=== PATIENT | male | born 1935 | race Caucasian/White ===

== ENCOUNTER 2019-03-02 15:10 | Inpatient (IN) | payer MEDICARE, OTHER ==
[~2019-03-02] VITALS: Ht 175.2 cm; Wt 55.4 kg
--- NOTE | ~2019-03-02 | WRIGHTHP ---
[place], [place] PATIENT HISTORY AND PHYSICAL EXAM NAME: CHUNG RCIO UNIT #: [id number] ROOM: 316 DOCTOR: CLIFFORD ATKINS MD BIRTHDATE: [birth year] DOS: 03/03/2019 INITIAL PSYCHIATRIC EVALUATION CHIEF COMPLAINT: "Those boys over, they better stop that." HISTORY OF PRESENT ILLNESS: This is an 84-year-old white male who was initially residing at [facility]. The patient sustained a fall while at the rehab facility causing a subdural hematoma. He was taken to [facility] and later transferred to [place]. While at [place], the patient had a significant alteration in mental status and he was verbally and physically agitated and aggressive and very combative with hands on care. He was exit seeking and was hard to redirect. Because of the significant change in behavior and the fact that he was putting both himself and others at substantial risk of harm, it was felt that a psychiatric evaluation and treatment period was warranted. He was admitted to the U to rule out organic factors, to stabilize on medication, to engage in individual and patel milieu activity and to determine the least restrictive environment to which he could return. PAST MEDICAL HISTORY: Remarkable for adult failure to thrive, Alzheimer's dementia, coronary artery disease, hypertension, GERD, CVA, osteoarthritis, Parkinson's disease and subdural hematoma. SOCIAL HISTORY: The patient does not smoke cigarettes, use illicit drugs, or drink alcohol. ALLERGIES: He lists no known allergies. STRENGTHS: Ambulatory. WEAKNESSES: Cognitive decline, poor coping skills. MENTAL STATUS: Upon admission, the patient on the morning of evaluation was alert and oriented to self. Beyond that, he was very disoriented and disjointed and fragmented in his thinking. His responses were totally nonsensical to me and there was nothing that was a reasonable response. On a positive note, he was not agitated or aggressive towards me. There was no hypomania or elizabeth seen. There were no overt auditory or visual hallucinations present. He does process extremely slow and poorly and short term memory is very problematic. DIAGNOSES: Intermittent explosive disorder, Alzheimer's dementia. PLAN: I have increased his Depakote to 250 mg twice a day and 500 mg at bedtime. A valproic acid level upon admission was low at 20.2, which was expected given his initial dose of the Depakote. I have started him on Exelon patch 4.6 mg a day and have already augmented with Namenda 5 mg a day. We will titrate both of these upward as needed and as tolerated. We will engage in individual and patel milieu activity, returning to the least restrictive environment when psychiatrically stable. [place], [place] PATIENT HISTORY AND PHYSICAL EXAM NAME: CHUNG RICO UNIT #: [id number] ROOM: [facility] DOCTOR: CLIFFORD ATKINS MD BIRTHDATE: [birth year] CLIFFORD ATKINS MD CM:HISPHYS:PATIENT HISTORY AND PHYSICAL EXAMINATION 9 CLIFFORD ATKINS MD 03/03/1950 interface
--- NOTE | ~2019-03-02 | PR ---
[place], [place] PROGRESS NOTE NAME: CHUNG RICO UNIT #: [id number] ROOM: 316 DOCTOR: CLIFFORD ATKINS MD BIRTHDATE: [birth year] DOS: 03/05/2019 CHIEF COMPLAINT: "Those boys over there, they did it." SUMMARY OF THE VISIT: The patient was interviewed as he was sitting in a Beckie chair and being fed with the assistance of a nurse's aide. His responses to me were very disjointed and fragmented, almost nonsensical. He was pleasant, however, and did not offer any agitation or aggression. MENTAL STATUS: He remains alert and oriented to self only. He is grossly confused and disoriented. There is no symptom suggestive of elizabeth or hypomania. There is no psychotic symptoms. Memory is very poor and his ability to process is also suspect. PLAN: I will increase his Exelon patch from 4.6 mg daily to 9.5 mg daily, targeting a 13.3 mg dose. Also, increase the Namenda to 5 mg b.i.d. Given his poor p.o. intake, I will add Marinol 2.5 mg b.i.d., monitor for risks, benefits, continue to engage in individual and patel milieu activity, returning to the least restrictive environment when psychiatrically stable. CLIFFORD ATKINS MD CM:PNTRANS 7 [phone] CLIFFORD ATKINS MD [birth year]/191947 interface
--- NOTE | ~2019-03-02 | PR ---
[place], [place] PROGRESS NOTE NAME: CHUNG RICO UNIT #: [id number] ROOM: 316 DOCTOR: CLIFFORD ATKINS MD BIRTHDATE: [birth year] DOS: 03/08/2019 INTERVAL NOTE CHIEF COMPLAINT: "Good morning." SUMMARY OF THE VISIT: The patient was interviewed as he was resting quietly in the dining area. He awoke with some prompting to say good morning. Beyond that, he did not engage. He was pleasant and cooperative with no agitation. MENTAL STATUS: He remains alert and oriented to self only. His responses did tend to be very short and simple except for the good morning. There was no agitation, no aggression, no hypomania. No elizabeth, no psychotic symptoms noted during my interview. Memory is poor and processing is slow. PLAN: I will maximize out the dose of Namenda, bringing it up to 10 mg b.i.d. in an effort to try to lessen any potential sedation and somnolence, I will stop his Depakote and monitor for behavior. I will also change his stop date for his Ativan p.r.n. until 04/03/2019, so in case he requires it, it is there for him. We will continue to engage in individual and patel milieu activity, returning to the least restrictive environment when psychiatrically stable. CLIFFORD ATKINS MD CM:PNTRANS [phone] [id number] CLIFFORD ATKINS MD 03/08/19 0903 interface
--- NOTE | ~2019-03-02 | PR ---
[place], [place] PROGRESS NOTE NAME: CHUNG RICO UNIT #: [id number] ROOM: 316 DOCTOR: CLIFFORD ATKINS MD BIRTHDATE: [birth year] DOS: CHIEF COMPLAINT: "Ya." SUMMARY OF THE VISIT: The patient was attempted to be interviewed as he was resting in bed. I made multiple attempts to engage him and the most I got was a yes or a "ya." For the most part, he ignored me and stared off into space. Nurses report similar behavior with worsening confusion and poor ability to engage. Family has noticed a rather rapid decline and has voiced concerns that the decline is progressing so dramatically. MENTAL STATUS: He is alert and oriented to self. His responses were short, simple, at times inappropriate. PLAN: Given the rapid decline, I will recheck a CAT scan of his head with and without contrast to see if his brain bleed progressed. We will try to rule out any other organic factors, engage in individual and patel milieu activity, returning to the least restrictive environment when psychiatrically stable. CLIFFORD ATKINS MD CM:PNTRANS [phone] [id number] CLIFFORD ATKINS MD 03/04/192113 interface
[~2019-03-02 15:10] MED LIST: ASCORBIC ACID500 M2 PO; CALCI-CHEW500 MG PO; DEPAKOTE SPRIN125 MG PO; DONEPEZIL HYDRO10 M1 PO; LEADER ASPIRIN325 MG PO; MIRALAX17 GM PO; NATURE'S BLEND F1 MG PO; OMEPRAZOLE MAGN20 MG PO; RANITIDINE HCL150 M1 PO; SENNA8.6 MG PO; THERA-M1 EACH PO; VISTARIL50 MG PO; VITAMIN B121000 MC1 PO
[2019-03-02] MEDS ORDERED: DEPAKOTE SPRIN125 MG PO (15:19)
[2019-03-02] MEDS ORDERED: ZOLOFT100 MG PO (15:20)
[2019-03-02] MEDS ORDERED: ARICEPT10 M1 PO (15:21)
[2019-03-02] MEDS ORDERED: VISTARIL50 MG PO (15:23)
[2019-03-02 18:50] VITALS: BP 170/100
--- NOTE | 2019-03-02 18:50 | NUR ---
CHUNG GUADARRAMA a 84 year old M admitted via stretcher from the ADMITTING as a voluntary admission. Arrived on unit at 1850. ALLERGIES: NKA. Vital signs are: 97.4-82-18 168/92. The client's POA,Swati Guadarrama gave verbal consent for the following forms with stated understanding: Authorization For The Release of Medical Information, Clothing List, Consent to Voluntary Admission and Hospitalization, Consent and Release Forms/Receipt of Rights, Acknowledgement of Advance Directive Information, Behavioral Health Consent Form, and Informed Consent of Medications. Admitted under the services of Dr. MILLY DAVID,[facility]. A search was conducted and hazardous articles were removed. 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 JAMES GLEASON
[2019-03-02 19:35] VITALS: BP 168/92
--- NOTE | 2019-03-02 19:45 | NUR ---
Skin assessment performed and no wounds were seen. Indentations from monitor electrodes visible on skin on patient's back and chest. Reddened but blanchable area noted buttock cleft. No open areas noted. Will notify hospitalist.
--- NOTE | 2019-03-02 19:50 | NUR ---
NOTIFIED DR PORTRE OF CLIENTS ADMISSION. UPDATED ON CLIENTS CONDITION
--- NOTE | 2019-03-02 20:00 | NUR ---
Patient unable to participate with admission questions due to cognition.
--- NOTE | 2019-03-02 21:30 | NUR ---
Dr. Mills came and examined patient for admission consult.
[2019-03-02 21:50] VITALS: BP 164/96
--- NOTE | 2019-03-02 22:20 | NUR ---
Patient attempting to get out of bed and setting off alarm. Placed patient in gerichair with body alarm and placed in hallway with staff. Patient cursing at staff,yelling out,swinging arms,and kicking. Was quiet for 5 minutes after placement in gerichair.
--- NOTE | 2019-03-02 22:25 | NUR ---
Patient started yelling out again. Attempted to redirect patient but unsuccessful. Patient raised his arm and swung at staff member but missed. Patient attempted to head butt and bite another staff member. Was kicking yet another staff member. Also cursing out all staff. Attempting to bite several staff. All non-pharmacological interventions unsuccessful. All staff members present for patient's protection to prevent injury to patient. Adminisered Ativan IM prn for patient's safety and Apresoline IV as per doctor's order or hypertension.
[2019-03-02 22:50] VITALS: BP 138/82
--- NOTE | 2019-03-02 22:54 | NUR ---
NOTIFIED DR PORTER OF BP 138/82 MANUAL
[2019-03-02 23:20] VITALS: BP 132/80
--- NOTE | 2019-03-02 23:23 | NUR ---
Dr. Mills was called and notified of all blood pressure readings so far. Dr. Mills said ok to stop monitoring blood pressure at this time.
--- NOTE | 2019-03-03 00:16 | NUR ---
24 HR chart check completed.
--- NOTE | 2019-03-03 05:23 | NUR ---
Patient slept approx. 1 1/2 hours throughout shift. Q 15 minute safety checks continued and maintained.
[2019-03-03 06:31] LABS: ALBUMIN 3.7 gm/dl (3.1-4.5); ALKALINE PHOSPHATASE 113 U/L (45-117); BUN 31 mg/dl (7-24); CHLORIDE 107 mmol/L (98-107); CHOLESTEROL 246 mg/dL (<200); CREATININE 1.02 mg/dL (0.70-1.30); HDL CHOLESTEROL 64 mg/dl (40-60); LDL CHOLESTEROL 167 mg/dL (9-159); POTASSIUM 3.4 mmol/L (3.5-5.1); SGOT/AST 19 IU/L (3-35); SGPT/ALT 21 U/L (12-78); SODIUM 142 mmol/L (136-145); TOTAL PROTEIN 8.2 gm/dL (6.4-8.2); TRIGLYCERIDES 77 mg/dl (<150); VALPROIC ACID (DEPAKENE) 20.2 ug/ml (50-100); VLDL CHOLESTEROL 15 mg/dL (6-40)
[2019-03-03 07:39] LABS: VITAMIN D, 25-HYDROXY 43.5 ng/mL (30-100)
--- NOTE | 2019-03-03 07:48 | NUR ---
DR. HEREDIA AND DR. SCHOFIELD ON FLOOR TO ASSESS PT, UPDATE PROVIDED.
[2019-03-03 07:54] VITALS: BP 155/81
--- NOTE | 2019-03-03 09:00 | NUR ---
SPEECH PATHOLOGY Nursing screen completed. Reports indicate patient suffered a recent CVA. He has been confused and combative. Recommend consult when behavior improves and patient is able to cooperate for assessment. VENKAT SANTIAGO MSCCC-ACCOUNT CONTACT ASSOCIATE
--- NOTE | 2019-03-03 11:43 | NUR ---
AM GROUP PT WAS PRESENT FOR MORNING GROUP THERAPY AND WAS AGITATED BY THE TRAY TABLE LOCKED ON THE ABIGAIL CHAIR. ONCE TRAY WAS REMOVED AND PT REPOSITIONED WITH HELP OF MENTAL HEALTH WORKER, THE PT CALMED AND BEGAN "TALKING" TO ME I SAT BESIDE HIM. PT WAS REACHING FOR UNSEEN OBJECTS AND WAS TALKING TO UNSEEN OTHERS. PT WOULD LOOK TO ME FOR REASSURANCE AND EXHIBITED NO MORE AGITATION OR AGGRESSION.
--- NOTE | 2019-03-03 14:05 | NUR ---
Patient with activity personnel and agitated. Nurse reports that patient has been irritable. OTR will recheck at a later date. Lolis Odom OTR/l
--- NOTE | 2019-03-03 14:05 | NUR ---
PHYSICAL THERAPY Pt partaking in activities and "agitated." Nursing suggested trying at another time. Will attempt later Jyotsna Brown, PT, DPT
--- NOTE | 2019-03-03 14:36 | NUR ---
P: RESTLESS, POOR SAFETY AWARENESS, AGGRESSIVE BEHAVIOR WITH SHORT AND USP MEMORY LOSS, HALLUCINATION I: 1:1 WITH STAFF, REORIENTING POSSIBLE, DISTRACTION, TOILETING WITH SLOW APPROACH AND VISUAL CUEING, CLIP ALARM INTACT FOR SAFETY SOOTHING MUSIC LOW LIGHT STIMULATIONS R: PT RESPONDED WELL WITH HOC, GRABBING OUT FOR UNSEEN OBJECTS, DIFFICULT REDIRECTION FOR REMAINING SEATED, MEDICATION COMPLIANT TODAY P: CONTINUE TO MONITOR WITH MEDICATIONS, IDENTIFYING TRIGGERS, REORIENTATION , PROMOTE SAFETY, PT HAS RAMBLED NONSENSICAL SPEECH WITH POOR HEARING WHICH MAKES COMMUNICATION DIFFICULT. CONTINUE TO APPROACH DIFFERENT COMMUNICATION TECHNIQUES
--- NOTE | 2019-03-03 15:36 | NUR ---
Left a voicemail message for pt's Swati Guadarrama requesting a return call in order to complete the psychosocial assessment as patient is a poor historian.
--- NOTE | 2019-03-03 15:38 | NUR ---
PM GROUP PT WAS PRESENT FOR AFTERNOON GROUP BUT IS UNABLE TO PARTICIPATE DUE TO COGNITIVE IMPAIRMENT. PT WAS EXPERIENCING VISUAL HALLUCINATIONS THE ENTIRE TIME, REACHING, GRABBING, AND TALKING TO UNSEEN OBJECTS/PERSONS. PT WAS SLIGHTLY AGITATED WITH WHOMEVER HE WAS SEEING BUT DID NOT BECOME AGGRESSIVE.
--- NOTE | 2019-03-03 16:05 | NUR ---
Spoke with Nighat Heel Cutter at [facility]. Pt. did not pay to hold bed and Pt. would need all new referral sent to [facility] if family wants him to return to facility.
--- NOTE | 2019-03-03 18:16 | NUR ---
PT RESTLESS, YELLING OUT SWEARING, REACHING AT UNSEEN OBJECTS "I NEED TO GO DOWN THERE, DON'T DROP IT, IT NEEDS TO GO YOU SON OF A BITCH" PT FAMILY INTO VISIT STATED THAT 2 DAYS AGO HE WAS ABLE TO SIT AND COMMUNICATE ABOUT [employer] EVEN THOUGH HE DIDN'T KNOW WHO THEY WERE, PT DID NOT RECOGNIZE OR DAUGHTER. UNABLE TO FOCUS PT AT THIS TIME. SLIGHT DRAINAGE NOTED TO LEFT EYE. WARM WATER WASH COMPLETED AT THIS TIME.
[2019-03-03 19:43] VITALS: BP 129/78
--- NOTE | 2019-03-03 23:49 | NUR ---
The patient has no complaints and is resting comfortably. LILA PERES
--- NOTE | 2019-03-04 02:09 | NUR ---
PT WITH VISUAL AND PERHAPS AUDITORY OR TACTILE HALLUCINATIONS. PT IS OBSERVED SPEAKING WITH UNSEEN OTHERS AND REACHING FOR UNKNOWN OBJECTS IN THE AIR. PT PRESENTED WITH REALITY, REDIRECTED, PROVIDED 1:1. MEDICATIONS ADMINISTERED PER ORDER. PT UNRECEPTIVE TO REALITY PRESENTATION, REDIRECTION AND REORIENTATION. PT IS VERY CONFUSED WITH APPARENT ST/LT MEMORY GAPS. PT IS MEDICATION COMPLIANCE WITH SMALL AMOUNT OF ENCOURAGEMENT. PT SLEEPING QUIETLY IN BED AT THIS TIME. WILL CONTINUE TO PRESENT REALITY AND REDIRECT/REORIENT APPROPRIATE. WILL ENCOURAGE CONTINUED MEDICATION COMPLIANCE. WILL PROMOTE RESTFUL NIGHT SLEEP. Q15 MIN MONITORING PER POLICY
--- NOTE | 2019-03-04 02:18 | NUR ---
24 HR chart check completed.
--- NOTE | 2019-03-04 06:01 | NUR ---
The patient has no complaints and is resting comfortably. PT SLEPT PAST 2300. LILA PERES
[2019-03-04 07:56] VITALS: BP 100/80
--- NOTE | 2019-03-04 12:14 | NUR ---
SPOKE WITH DR. ATKINS RE: PT CT ORDER, PER DR. ATKINS GIVE 1 MG ATIVAN 15-[address]
--- NOTE | 2019-03-04 12:17 | NUR ---
IM ATIVAN ADMINISTERED PER ORDERS PRIOR TO CT.
--- NOTE | 2019-03-04 12:20 | NUR ---
SPEECH PATHOLOGY Orders for swallowing evaluation received and chart review completed. Clinician arrived on [facility] for assessment and was informed that patient is currently NPO for scheduled testing. Will attempt at another time. Thank you for this referral. VENKAT SANTIAGO MSCCC-ENGROSSER
--- NOTE | 2019-03-04 13:00 | NUR ---
Nursing screen received and Occupational Therapy referral received. Thank you. Lolis Odom OTR/l
--- NOTE | 2019-03-04 13:39 | NUR ---
SPEECH PATHOLOGY Clinical swallowing evaluation completed this date to assess appropriateness of current diet. Medical history includes recent subdural hematoma after suffering a fall while in rehab. Further history includes GERD, PD, Alzheimer's, schizophrenia, dysphagia, CAD, HTN, hearing loss in left ear, anxiety, depression. Patient was seen during lunchtime meal. Patient is ordered a pureed diet and nectar thick liquids. He was fed by clinician and his spouse who was visiting. Patient was extremely confused and unable to follow commands or answer questions apppropriately. He displayed a mild oral dysphagia due to occasional residue in oral cavity as he would frequently talk throughout the meal, and not swallow immediately. No cough, throat clear or wet vocal quality observed. Recommend puree and nectar liquids with use of strategies including upright positioning, small bites/sips, giving patient time to swallow before next presentation and alternating liquid and solid. Short term therapy is recommended to ensure safety of diet through education and adherence to safety precautions. Results and cee. were shared with patient's spouse and nurse and they verbalized understanding. Refer to [facility] for further information. Thank you for this referral. VENKAT SANTIAGO MSCCC-INTRUSION ANALYST
--- NOTE | 2019-03-04 16:18 | NUR ---
P: PT INTRUSIVE/DISRUPTIVE AT TIMES, YELLING OUT. PT MOOD IS LABILE. I: PROVIDE EMOTIONAL SUPPORT AND 1:1, OFFER DIVERSIONAL ACTIVITIES R: PT ALERT TO SELF ONLY, CONFUSION AND SHORT TERM MEMORY DEFICITS NOTED PER PT BASELINE. PT MOOD REMAINS LABILE. 1:1 SLIGHTLY EFFECTIVE AT TIMES. PT UP TO A GERICHAIR D/T INABILITY TO AMBULATE INDEPENDENTLY. PT WILL UTILIZE MERRYWALKER AT TIMES TO AMBULATE THROUGHOUT UNIT. PT INCONTINENT OF BOWEL AND BLADDER, CARE PROVIDED NEEDED. PT MED COMPLIANT WITHOUT DIFFICULTY, UNABLE TO PROVIDE MED EDUCATION D/T COGNITION. P: MONITOR PT BEHAVIORS ON Q15 MIN SAFETY CHECKS, ENCOURAGE MED COMPLIANCE, PROVIDE EMOTIONAL SUPPORT AND 1:1, OFFER DIVERSIONAL ACTIVITIES.
[2019-03-04 19:36] VITALS: BP 104/72
--- NOTE | 2019-03-04 19:49 | NUR ---
24 HR chart check completed.
--- NOTE | 2019-03-04 21:29 | NUR ---
PT HAS BEEN SLEEPING IN A ABIGAIL CHAIR WITH TRAY OFF. KEEPS EYES CLOSED BUT RESPONDS TO PERSON ONLY. HAS REFUSED OFFERS OF FLUIDS, FOOD & STATED, "GET THE HELL AWAY FROM ME". REFUSED MEDS CRUSHED IN APPLESAUCE DESPITE 4 ATTEMPTS SPITTING THEM OUT & SWUNG ARM IN THE AIR. WILL CONTINUE TO MONITOR.
--- NOTE | 2019-03-05 03:18 | NUR ---
PT HAS REMAINED AWAKE LYING QUIETLY IN BED. HAS BEEN NOTED TO CARRY ON CONVERSATIONS WITH UNSEEN OTHERS. MILDLY IRRITABLE WITH HANDS ON CARE.
--- NOTE | 2019-03-05 06:07 | NUR ---
PT NOTED TO BE SLEEPING AT 0400
[2019-03-05 07:38] VITALS: BP 133/83
--- NOTE | 2019-03-05 08:00 | NUR ---
Treatment Plan meeting with Dr. Treviño, RN, AT, SW and [facility]. Plan for discharge Next Week. Will speak with Family concerning Discharge Plans.
--- NOTE | 2019-03-05 10:10 | NUR ---
DR. LOMELI ON UNIT TO ASSESS PT, UPDATE PROVIDED.
--- NOTE | 2019-03-05 11:51 | NUR ---
AM GROUP PT WAS PRESENT FOR MORNING GROUP THERAPY RECLINED IN A ABIGAIL CHAIR SLEEPING OFF AND ON. PT WOULD REACH FOR UNSEEN OBJECTS AND SPEAK TO UNSEEN OTHERS AND GO BACK TO SLEEP. PT EXHIBITED NO AGITATION OR AGGRESSION WHILE IN GROUP
--- NOTE | 2019-03-05 12:51 | NUR ---
SPEECH THERAPY Patient seen at lunch for swallowing treatment. He was in gerichair upon clinician arrival. Patient presented with red, watery eyes with confusion observed throughout treatment session. Variety of pureed food items and nectar-thick liquid presented to patient. He required assistance to feed, with verbal cuing to attend and initiate swallow at times. Mild oral residue was observed, which cleared following sips of nectar-like liquid, given to patient with clinicain-controlled tsp sips. No overt s/s of penetration was observed throughout all trials and each consistency. Feeding was discontinued as patient appeared to become more fatigued with lower levels of alertness. This was discussed with nursing staff who reported his level of altertness is reduced from previous day. Recommended continue treatment plan to ensure safety and tolerance of recommended diet. No overt s/s of penetration or aspiration observed today. Continue with current/recommended diet. Patient requires assistance for feeding and monitoring during meals. Yadi Nava MA CCC-MACHINIST CLASS B
--- NOTE | 2019-03-05 15:04 | NUR ---
P: PT RESTLESS AND IRRITABLE AT TIMES. YELLS OUT INTERMITTENTLY. PT REISISTIVE WITH AM MEDS. PT OBSERVED TO BE TALKING TO UNSEEN OTHERS AND PICKING AND MOVING THINGS AROUND IN THE AIR. I: PROVIDE EMOTIONAL SUPPORT AND 1:1 FOR PT TO VOICE FEELINGS, OFFER DIVERSIONAL ACTIVITIES, PROVIDE REDIRECTION, ENCOURAGE MED COMPLIANCE, RE-ORIENT AND PRESENT REALITY R: PT ALERT TO PERSON ONLY, CONFUSION AND SHORT TERM MEMORY DEFICITS NOTED. PT MED COMPLIANT WITH MINIMAL DIFFICULTY. PT UP TO A GERICHAIR D/T INABILITY TO AMBULATE INDEPENDENTLY. PT INCONTINENT OF BOWEL AND BLADDER. REDIRECTION INEFFECTIVE D/T COGNITION PT CONTINUES TO RESPOND TO AUDITORY AND VISUAL HALLUCINATIONS. P: MONITOR PT BEHAVIORS ON Q15 MIN SAFETY CHECKS, ENCOURAGE MED COMPLIANCE, CONTINUE TO REDIRECT AND PRESENT REALITY, PROVIDE EMOTIONAL SUPPORT AND 1:1 FOR PT TO VOICE FEELINGS. P
--- NOTE | 2019-03-05 15:44 | NUR ---
PM GROUP PT WAS PRESENT FOR AFTERNOON GROUP THERAPY CONSTANTLY TRYING TO GET OUT OF HIS CHAIR WITH NO AWARENESS FOR SAFTY. PT WOULD CUSS AND SWING AT ME IF I TRIED TO STOP HIM FROM GETTING UP. PT WAS PICKING AT OBJECTS IN THE AIR, SMASHING "ANTS" ON THE TABLE AND TALKING TO UNSEEN OTHERS WHILE IN GROUP
--- NOTE | 2019-03-05 16:06 | NUR ---
Spoke with Pt. Daughter via telephone. Daughter states that her and her Mother were working to get patient alternate placement before he was sent to [facility] for evaluation.
--- NOTE | 2019-03-05 16:35 | NUR ---
Referral Faxed to [facility].
[2019-03-05 20:03] VITALS: BP 132/84
--- NOTE | 2019-03-05 20:58 | NUR ---
24 HR chart check completed.
--- NOTE | 2019-03-05 22:28 | NUR ---
P-CONFUSED, IRRITABLE, HALLUCINATING, RESTLESS I-PROVIDE EMOTIONAL SUPPORT, REDIRECT, REORIENT, PRESENT REALITY, ADMINISTER MEDICATIONS, MONITOR SLEEP R-PT HAS BEEN AWAKE THIS EVENING. ALERT TO PERSON ONLY. CONFUSION & SHORT TERM MEMORY DEFICITS. SITTING IN A ABIGAIL CHAIR. ATE SNACK & TAKING FLUIDS. 2 ASSISTS FOR AMBULATION & TRANSFERS. IRRITABLE MOOD. RESPONDING TO AUDITORY, VISUAL & TACTILE HALLUCINATIONS. PICKING AT THE AIR & GESTURING. YELLING OUT AT UNSEEN OTHERS IF HE WERE AT WORK. "YOUR NOT DOING THE JOB RIGHT. HURRY UP. I CANT BE OUTSIDE ALL DAY". UNRECEPTIVE TO REORIENTATION, REALITY PRESENTATION OR REDIRECTION. COMPLIANT TAKING MEDICATIONS CRUSHED & MIXED IN PUDDING. HAS BEEN RESTLESS & MORE IRRITABLE WHEN RESPONDING TO SENSORY DISTURBANCE. NOTED TO CURSE AT TIMES. MEDICATED WITH ATIVAN 1 MG PO @ 2154. INCONTINENT OF URINE. P-CONTINUE TO MONITOR, PROVIDE PHYSICAL & EMOTIONAL SUPPORT NEEDED.
--- NOTE | 2019-03-06 06:19 | NUR ---
PT HAS SLEPT FROM [id number]
[2019-03-06 07:33] VITALS: BP 130/66
--- NOTE | 2019-03-06 09:57 | NUR ---
DR. LOMELI ON UNIT TO ASSESS PATIENT.
--- NOTE | 2019-03-06 11:56 | NUR ---
AM GROUP/CARDS/MUSIC PT NOT IN ATTENDANCE DUE TO RESTING IN ROOM AT THIS TIME.
--- NOTE | 2019-03-06 14:53 | NUR ---
P: VISUAL AND AUDITORY HALLUCINATIONS: PATIENT RESPONDING TO INTERNAL STIMULI, TALKING TO UNSEEN OTHERS, WAVING HANDS IN THE AIR. STATING "I'M TRYING TO GET THOSE BUMBLE BEES OFF HER" I: ONE ON ONE, REORIENTED TO PLACE AND SITUATION, ENCOURAGED PATIENT TO ATTEND GROUP, STARTED YELLING DURING THE MOVIE AND ASSISTED TO QUIET ROOM FOR CHANGE OF ENVIRONMENT. R: EFFECTIVE. PATIENT SITTING QUITELY IN ROOM WITH ALARMS IN PLACE. PATIENT IS ALERT TO SELF WITH CONFUSION. LONG/SHORT TERM MEMORY DEFICITS. RESPONDING TO INTERNAL STIMULI. NO VOICED STATEMENT OF HI/SI OR PAIN. 2 PERSON ASSIST WITH ACTIVITIES OF DAILY LIVING, INCONTINENT OF BOWEL AND BLADDER. SET UP FOR MEALS. 1 ASSIST TO FEED PATIENT. INTAKES IMPROVIING. OFFERING FLUIDS FREQUENTLY. MEDICATION COMPLAINT. Q 15 MINUTE SAFETY CHECKS. NO AGGRESSION OBSERVED. P: CONTINUE TO MONITOR FOR AGGRESSION; PROVIDE ONE ON ONE AND REORIENTATION /REDIRECTION NEEDED.
--- NOTE | 2019-03-06 15:41 | NUR ---
PM GROUP/MOVIE PT IN ATTENDANCE AND PARTICIPATING BY RELAXING AND WATCHING MOVIE. PT DID NOT EXPRESS ANY S.I., HALLUCINATIONS, OR ANXIETY AT THIS TIME.
--- NOTE | 2019-03-06 15:43 | NUR ---
PM GROUP/MOVIE PT ATTENDED FOR PART OF GROUP BUT UNABLE TO PARTICIPATE DUE TO CONSTANT FIDGETING AND MUMBLING. PT REACHING INTO THE AIR STATING "I CAN'T GET IT" BUT DID NOT SPECIFY TO WHAT. THIS STAFF TRIED TO GIVE PT WATER AND ASKED ABOUT ANY OTHER NEEDS BUT PT UNABLE TO COMMUNICATE CURRENT NEEDS. A PEER BEGAN GETTING FRUSTRATED BY PT'S CONSTANT MOVEMENTS AND NOISES THEREFORE PT REMOVED FROM ACTIVITY ROOM REMAINDER OF GROUP.
--- NOTE | 2019-03-06 16:02 | NUR ---
Shift chart check completed.
[2019-03-06 19:56] VITALS: BP 132/64
--- NOTE | 2019-03-06 22:20 | NUR ---
Patient alert to self only with confusion and ST/LT memory deficits. Patient responding to visual hallucinations noted at this time. Patient noted to talking to unseen others and reaching for unseen objects. Patient slightly compliant with medications. Patient took half of crushed meds in applesauce and spit out second half. Attempted to redirect/reorient but unsuccessful. Provided 1:1 for emotional support. Patient calm at this time but curses with hands on care. Plan to continue to encourage medication compliance and continue to provide emotional support. Continue to redirect/reorient when needed/appropriate. Continue to monitor behavior. Q 15 minute safety checks continued and maintained. See [facility] flowsheet for further documentation.
--- NOTE | 2019-03-07 00:20 | NUR ---
24 HR chart check completed.
--- NOTE | 2019-03-07 05:40 | NUR ---
Patient slept approx. 4 hours of restless sleep throughout shift. Q 15 minute safety checks continued and maintained.
[2019-03-07 07:33] VITALS: BP 129/76
--- NOTE | 2019-03-07 09:17 | NUR ---
PT UP TO ABIGAIL CHAIR. ALERT BUT UNABLE TO COMMUNICATE NEEDS, STAFF ASSISTING HIM WITH BREAKFAST, PT NOTED TO BE POCKETING FOOD AND BITING AT SPOON, MOUTH SWABBED SEVERAL TIMES TO ENCOURAGE SWOLLOWING. PT SHIFTS FREQUENTLY IN HIS CHAIR, CLIP ALARM INTACT TO ALERT STAFF OF PT MOVEMNTS. PT IS INCONTINENT OF BOWEL AND BLADDER AT THIS TIME. STAFF PROVIDES HOC THROUGH OUT THE SHIFT, NO AGGRESSIVE BEHAVIORS NOTED. PT HAS WEIGHTED BLANKET FROM FAMILY WHICH APPEARS TO PROVIDE HIM COMFORT. CONTINUE TO MONITOR PT AT THIS TIME.
--- NOTE | 2019-03-07 10:45 | NUR ---
DR. LOMELI ON UNIT TO ASSESS PATIENT.
--- NOTE | 2019-03-07 15:49 | NUR ---
Shift chart check completed.
--- NOTE | 2019-03-07 18:13 | NUR ---
PT COOPERATIVE WITH ALL HOC, POOR SWALLING THROUGHOUT THE DAY, MUCH ENCOURAGEMET NEEDED TO SWALLOW. PT HAS NOT BEEN COMBATIVE, OR AGGRESSIVE THIS SHIFT. FAMILY IN TO VISIT.
--- NOTE | 2019-03-07 20:13 | NUR ---
Dr. Mills notified of patient's recent blood pressure and poor intake. Dr. Mills said to watch him. No new orders received at this time.
[2019-03-07 20:16] VITALS: BP 92/78
--- NOTE | 2019-03-07 22:01 | NUR ---
Patient alert to self only with confusion and ST/LT memory deficits. No signs of any hallucinations noted at this time. Patient non-compliant with medications. Provided 1:1 for emotional support. Patient calm at this time but curses with hands on care. Plan to continue to encourage medication compliance and continue to provide emotional support. Continue to redirect/reorient when needed/appropriate. Continue to monitor behavior. Q 15 minute safety checks continued and maintained. See [facility] flowsheet for further documentation.
--- NOTE | 2019-03-08 00:27 | NUR ---
24 HR chart check completed.
--- NOTE | 2019-03-08 05:33 | NUR ---
Patient slept approx. 6 hours throughout shift. Q 15 minute safety checks continued and maintained.
[2019-03-08 07:48] VITALS: BP 107/63
[2019-03-08 10:16] LABS: CREATININE 1.6 mg/dL (0.70-1.30); POTASSIUM 3.9 mmol/L (3.5-5.1)
--- NOTE | 2019-03-08 10:32 | NUR ---
Treatment plan meeting held with Dr Treviño, RN, TOBY MAKER-S, and resident services coordinator. Discharge date undetermined at this time. Referral has been made to [facility]. Await decision from [facility].
--- NOTE | 2019-03-08 11:00 | NUR ---
DR. LUDWIG MADE AWARE OF PT'S BMP RESULTS. MADE AWARE OF PT'S POOR PO INTAKE. STATES "OK, I WILL ORDER SOMETHING"
--- NOTE | 2019-03-08 11:25 | NUR ---
IV STARTED TO LEFT ANTECUBITAL BY MIMI. PT HAS #22G CATH, SALINE LOCK, FLUSHED WITHOUT DIFFICULTY. PT TOLERATED WELL.
--- NOTE | 2019-03-08 11:40 | NUR ---
Per Jennifer, the networking administrator at [facility] does not feel pt is appropriate for their facility. Left a voicemail message for pt's daughter Rayna Bautista informing her of this and requesting a return call to discuss other NF options. Await return call.
--- NOTE | 2019-03-08 11:47 | NUR ---
AM GROUP PT WAS PRESENT FOR MORNING GROUP THERAPY SLEEPING SITTING UPRIGHT IN A ABIGAIL CHAIR. PT IS UNABLE TO PARTICIPATE AT THIS TIME DUE TO COGNITIVE IMPAIRMENT.
--- NOTE | 2019-03-08 12:19 | NUR ---
SPEECH PATHOLOGY Orders for reevaluation of swallowing status received. Patient is currently on caseload to ensure safe tolerance of oral intake. He was seen during lunchtime meal. Patient was awake but with limited awareness. He was not able to follow commands or answer questions. Attempted various puree and nectar thick liquids. When pureed vegetable, coffee and enzo rachel were attempted, patient swatted the spoon away. Encouragement was provided but not helpful. Pudding was then attempted. Patient opened his mouth and accepted a bite, but was not able to swallow it. Tactile cue to initiate a swallow was provided. He was able to elicit a delayed swallow but pudding remained on his tongue. Clinician used a spoon and swab to clear his mouth and during this he screamed and shook his head. He was not able to answer when he was asked if his mouth hurt. His appetite has been poor and staff reports he has been spitting out meds. Patient is unable to safely tolerate po intake at this time therefore recommend alternate means of nutrition. Patient's nurse was informed of results and cee. and verbalized understanding. Will continue to monitor patient status and continue plan as appropriate. VENKAT SANTIAGO MSCCC-PHOSPHORIC ACID OPERATOR
--- NOTE | 2019-03-08 15:15 | NUR ---
Patient not appropriate for Occupational Therapy as he is restless and NPO and receiving an IV. Lolis Odom OTr/L
--- NOTE | 2019-03-08 15:50 | NUR ---
PM GROUP PT WAS PRESENT FOR AFTERNOON GROUP THERAPY RECLINED IN A ABIGAIL CHAIR. PT WAS VERY RESTLESS AND SQUIRMING AROUND IN THE CHAIR. PT WAS HAVING VISUAL HALLUCINATIONS BY PICKING AT THE AIR. PT EXHIBITED NO AGITATION OR AGGRESSION WHILE IN GROUP
--- NOTE | 2019-03-08 17:06 | NUR ---
MARICEL CALLED IN TO HOSPITAL TO INFORM THIS NURSE OF DECISIONS ON PATIENT. MARICEL SPOKE WITH DR. LUDWIG REGARDING TPN OR PEG TUBE PLACEMENT OPTIONS FOR PATIENT. POA HAS DECIDED FOR PATIENT TO HAVE A PEG TUBE PLACE. DR. LOMELI AWARE. DR. ATKINS NOTIFIED OF PATIENT BEING DISCHARGED TO MEDICAL FLOOR FOR PEG TUBE PLACEMENT. DISCHARGE ORDER IN PROCESS. NURSING ESTATE ATTORNEY NOTIFIED.
--- NOTE | 2019-03-08 17:56 | NUR ---
SPOKE WITH NURSE "MATEO" ON 5TH FLOOR. MADE AWARE OF PT READY FOR DISCHARGE.
--- NOTE | 2019-03-08 18:17 | NUR ---
PT DISCHARGED OFF UNIT AT THIS TIME VIA W/C, ESCORTED BY RN AND SECURITY. BEDSIDE REPORT GIVEN TO MATEO.
== END 2019-03-08 18:17 | disposition short-term general hospital (02) | DRG 883 ==
LOC: 3N 15:10
PROVIDERS: ADMIT Psychiatry & Neurology Psychiatry
DX: F63.81 Intermittent explosive disorder (principal); F02.81 Dementia in other diseases classified elsewhere, unspecified severity, with behavioral disturbance; I25.810 Atherosclerosis of coronary artery bypass graft(s) without angina pectoris; Z68.1 Body mass index [BMI] 19.9 or less, adult; F41.9 Anxiety disorder, unspecified; F32.9 Major depressive disorder, single episode, unspecified; K21.9 Gastro-esophageal reflux disease without esophagitis; G20 Parkinson's disease; G30.9 Alzheimer's disease, unspecified; F20.9 Schizophrenia, unspecified; I10 Essential (primary) hypertension; M19.90 Unspecified osteoarthritis, unspecified site; R13.10 Dysphagia, unspecified; H91.12 Presbycusis, left ear; R62.7 Adult failure to thrive; E87.6 Hypokalemia; E78.5 Hyperlipidemia, unspecified; Z86.73 Personal history of transient ischemic attack (TIA), and cerebral infarction without residual deficits; Z79.899 Other long term (current) drug therapy

== ENCOUNTER 2019-03-08 18:24 | Inpatient (IN) | payer MEDICARE, OTHER ==
[~2019-03-08] VITALS: Ht 175.2 cm; Wt 55.4 kg
[2019-03-08 18:00] VITALS: BP 90/78
[~2019-03-08 18:24] MED LIST changes: +ARICEPT10 M1 PO; +ZOLOFT100 MG PO
--- NOTE | 2019-03-08 18:52 | NUR ---
NOTIFIED REGARDING ADMISSION ORDERS.
[2019-03-08 20:00] VITALS: BP 137/94
--- NOTE | 2019-03-08 21:15 | NUR ---
PATIENT HAD EMESIS AT THIS TIME.
--- NOTE | 2019-03-08 21:48 | NUR ---
DR. DYSON NOTIFIED OF CONSULT FOR PEG TUBE PLACEMENT. HE WILL SEE PATIENT IN THE MORNING AND MAY KEEP ON CLEAR LIQUID DIET.
[2019-03-09] VITALS (7 sets, daily range): BP systolic 106–158; BP diastolic 73–93
--- NOTE | 2019-03-09 00:30 | NUR ---
PATIENT COMBATIVE WHILE PA TRYING TO GET VITAL SIGNS. UNABLE TO OBTAIN THEM AT THIS TIME. PATIENT ALSO INCONTINENT OF BOWEL WITH MESS EVERYWHERE. COMBATIVE DURING CARE. RESPIRATIONS REGULAR AND NON-LABORED. NO SIGNS OR SYMPTOMS OF DISTRESS NOTED. BED ALARM ON. IV FLUID OF D51/2NS WITH KCL 40MEQ INFUSING AT 60CC/HR. PATIENT POSITIONED FOR COMFORT AT THIS TIME. WILL CONTINUE TO MONITOR. CALL LIGHT IN REACH.
[2019-03-09 06:35] LABS: BASO # 0.1 10*3/uL (0.0-0.1); BASO % 0.6 % (0.0-1.0); EOS # 0.2 10*3/uL (0.0-0.4); EOS % 1.2 % (1.0-4.0); HEMATOCRIT 51.5 % (42.0-52.0); HEMOGLOBIN 16.7 g/dl (14.0-18.0); LYMPH # 1.5 10*3/uL (1.3-4.4); LYMPH % 12.3 % (27.0-41.0); MEAN CELL VOLUME 97.9 fl (80.0-94.0); MEAN CORPUSCULAR HGB 31.7 pg (27.0-31.0); MEAN CORPUSCULAR HGB CONC 32.4 g/dl (33.0-37.0); MONO # 1.2 10*3/uL (0.1-1.0); MONO % 9.5 % (3.0-9.0); NEUT # 9.3 10*3/uL (2.3-7.9); NEUT % 75.8 % (47.0-73.0); PLATELET COUNT AUTOMATED 282 10*3/uL (130-400); RED BLOOD COUNT 5.26 10*6/uL (4.50-5.90); RED CELL DISTRI WIDTH 13.2 % (0-14.5); WHITE BLOOD COUNT 12.2 10*3/uL (4.8-10.8)
[2019-03-09 06:55] LABS: BUN 58 mg/dl (7-24); CHLORIDE 122 mmol/L (98-107); POTASSIUM 4.1 mmol/L (3.5-5.1); SODIUM 154 mmol/L (136-145)
[2019-03-09 06:59] LABS: CREATININE 1.32 mg/dL (0.70-1.30); PHOSPHOROUS 2.2 mg/dL (2.5-4.9)
--- NOTE | 2019-03-09 11:53 | NUR ---
FIRST ATTEMPT MADE TO REACH DR MONROE. WILL REATTEMPT TO NOTIFY HIM. DR OZIEL CLINE.
--- NOTE | 2019-03-09 12:06 | NUR ---
DR MONROE CONSULT HAS BEEN CANCELLED AT THIS TIME.DR DYSON WILL BE RE EVALUATING PREVIOUS CONCERNS REGARDING PEG PLACEMENT.
--- NOTE | 2019-03-09 13:01 | NUR ---
PT TRANSPORTED OFF FLOOR VIA BED TO OR WITH DR DYSON FOR PEG PLACEMENT.
--- NOTE | 2019-03-09 13:16 | NUR ---
PT WAS TRANSFERRED TO MEDICAL SIDE FROM [facility] FOR PEG TUBE PLACEMENT. PER MEETING THIS AM PLAN IS TO THEN MOVE PT BACK TO [facility] FOR CONTINUED CARE. WILL CONTINUE TO FOLLOW.
--- NOTE | 2019-03-09 14:53 | NUR ---
PT RETURNED FROM [facility]. #[address] DYSON WITH BINDER IN PLACE.RESPS EASY ON RA.SPO2 95%. NODISTRESS NOTED. PT RESTING AT THIS TIME. CALL LIGHT IN REACH.BED ALARM INTACT.
--- NOTE | 2019-03-09 17:28 | NUR ---
HALDOL GIVEN PER PHYSICIAN ORDER FOR AGITATION AND ATTEMPTING TO PULL AT NEW PEG PLACED TODAY.
--- NOTE | 2019-03-09 22:00 | NUR ---
PATIENT HAD MEDIUM BOWEL MOVEMENT. CLEANED UP BY PA'S AT THIS TIME. PATIENT GIVEN JEVITY 1.2 BOLUS FEEDING VIA PEG TUBE AT THIS TIME. FLUSHED WITH 100CC H20. TOLERATED WELL. HOB ELEVATED. RESPIRATIONS REGULAR AND NON-LABORED. VITAL SIGNS STABLE. D51/2 NS WITH KCL 40MEQ INFUSING INTO LEFT ARM AT 60CC/HR. BED ALARM ON. WILL CONTINUE TO MONITOR. CALL LIGHT IN REACH.
--- NOTE | 2019-03-09 22:40 | NUR ---
DAUGHTER CALLED TO CHECK ON HER DAD. VOICED CONCERNS ABOUT PATIENT RETURNING TO THE [facility]. SHE SAID SHE DOESN'T WANT HIM IN A VEGETATIVE STATE LIKE HE HAD BEEN FOR THE DAYS HE WAS THERE. TOLD HER I WOULD PASS HER CONCERNS ON TO DAYLIGHT AND SHE COULD TALK TO CASE MANAGEMENT ABOUT IT. WILL CONTINUE TO MONITOR.
[2019-03-10] VITALS: BP 133/98
--- NOTE | 2019-03-10 04:00 | NUR ---
JEVITY 1.2 BOLUS GIVEN PER FEEDING TUBE AFTER PLACEMENT VERIFIFED. FLUSHED WITH 100CC WATER. NO RESIDUAL NOTED. PATIENT TOLERATED WELL. NO SIGNS OR SYMPTOMS OF DISTRESS NOTED. HOB ELEVATED. BED ALARM ON. WILL CONTINUE TO MONITOR.
[2019-03-10 08:00] VITALS: BP 155/90
[2019-03-10 08:18] LABS: BASO % 0.2 % (0.0-1.0); EOS % 0.1 % (1.0-4.0); HEMOGLOBIN 16.1 g/dl (14.0-18.0); LYMPH # 1.5 10*3/uL (1.3-4.4); MEAN CELL VOLUME 98.8 fl (80.0-94.0); MEAN CORPUSCULAR HGB 31.8 pg (27.0-31.0); MEAN CORPUSCULAR HGB CONC 32.2 g/dl (33.0-37.0); MONO # 1.2 10*3/uL (0.1-1.0); MONO % 7.3 % (3.0-9.0); NEUT # 13.4 10*3/uL (2.3-7.9); NEUT % 82.9 % (47.0-73.0); PLATELET COUNT AUTOMATED 248 10*3/uL (130-400); RED BLOOD COUNT 5.06 10*6/uL (4.50-5.90); RED CELL DISTRI WIDTH 13.5 % (0-14.5); WHITE BLOOD COUNT 16.2 10*3/uL (4.8-10.8)
[2019-03-10 08:37] LABS: CHLORIDE 124 mmol/L (98-107); CREATININE 1.19 mg/dL (0.70-1.30); PHOSPHOROUS 2.8 mg/dL (2.5-4.9); POTASSIUM 4.5 mmol/L (3.5-5.1); SODIUM 157 mmol/L (136-145)
[2019-03-10 08:45] LABS: BUN 38 mg/dl (7-24)
--- NOTE | 2019-03-10 10:48 | NUR ---
ELECTRONIC SCIENCE TEACHER reached out to the patients and left a message for a return call. ELECTRONIC SCIENCE TEACHER attempted to reach out to the patients daughter. Male answered and said to reach the patients daughter after 4pm. -YANIRA Marin
--- NOTE | 2019-03-10 11:14 | NUR ---
Nutritional Support Services Note: Pt with new peg tube placement. Ht.5'9 Wt. 122#, IBW 160#, he is approximately 38# under IBW range. He requires 1800cal daily via peg tube. Recommend Twocal Hn at 40cc per hour continuous for 24 hours. Will provide pt with 960cc/1920cal daily. If TF will be bolus pt will require 4cans per day. He requires 1600cc of fluid daily- will need an additional 700cc of fluid daily. Will follow as needed. Shelia Simons Rdn Ld
--- NOTE | 2019-03-10 13:16 | NUR ---
SPOKE WITH GUALBERTO, PATIENT'S DAUGHTER RE: WHICH MEDICATIONS PATIENT WAS TAKING AT HOME. PER GUALBERTO, SHE WILL BE ABLE TO CALL AFTER 4 OR 5 WITH THAT INFORMATION. SHE ALSO GAVE CONSENT TO RE[facility]. WILL ATTEMPT TO GET THE INFORMATION FROM [facility].
[2019-03-10 16:00] VITALS: BP 115/71
--- NOTE | 2019-03-10 16:10 | NUR ---
CALLED PT DAUGHTER TO TALK ABOUT DISCHARGE PLANS. SHE IS JUST COMING INTO [facility] AND I WILL MEET HER IN ROOM TO TALK ABOUT FATHER.
--- NOTE | 2019-03-10 16:34 | NUR ---
TALKED WITH PT DAUGHTER AND . THEY ARE OK WITH PT RETURNING TO [facility] IF DOCTORS FEEL IT IS NEEDED, BUT DO NOT WANT HIM SO HEAVILY SEDATED LIKE HE WAS BEFORE. THEY ARE QUESTIONING WHY [facility] DECLINED PT. EXPLAINED I DID NOT KNOW BUT WOULD TRY TO FIND OUT. PROVIDED DAUGHTER WITH MY NUMBER AND CORD MAKER NUMBER TO CALL ME TOMORROW ON HER LUNCH HOUR TO CHECK ON PT STATUS. WILL CONTINUE TO FOLLOW.
[2019-03-10] MEDS ORDERED: ARICEPT10 M1 PO (17:24)
[2019-03-10] MEDS ORDERED: CELEBREX100 MG PO (17:24)
[2019-03-10] MEDS ORDERED: TRAMADOL HCL50 MG PO (17:25)
[2019-03-10] MEDS ORDERED: ZOLOFT50 MG PO (17:25)
[2019-03-10] MEDS ORDERED: PAROXETINE40 MG PO (17:25)
--- NOTE | 2019-03-10 17:26 | NUR ---
MED REC UPDATED/CORRECTED USING LIST PROVIDED BY THE PATIENT'S .
--- NOTE | 2019-03-10 18:50 | NUR ---
ADMINISTERED TYLENOL VIA PEG TUBE FOR TEMP. 99.8 TYMPANIC.
[2019-03-10 20:00] VITALS: BP 132/87
--- NOTE | 2019-03-10 21:07 | NUR ---
PATIENT MEDICATED WITH HALDOL 5 IM PER PRN ORDERFOR AGGITATION/ AGGRESSION. ALSO MEDICATED WITH ZOFRAN. PATIENT GUARDING ABDOMEN WHERE ABDOMINAL BINDER IS.
[2019-03-11] VITALS: BP 130/70; BP 148/115
--- NOTE | 2019-03-11 | NUR ---
PATIENT RESTING QUIETLY. NO S/S OF DISTRESS NOTED.
[2019-03-11 06:32] LABS: HEMATOCRIT 48.1 % (42.0-52.0); HEMOGLOBIN 15.2 g/dl (14.0-18.0); MEAN CELL VOLUME 98.6 fl (80.0-94.0); MEAN CORPUSCULAR HGB 31.1 pg (27.0-31.0); MEAN CORPUSCULAR HGB CONC 31.6 g/dl (33.0-37.0); MEAN PLATELET VOLUME 11.8 fl (9.6-12.3); PLATELET COUNT AUTOMATED 203 10*3/uL (130-400); RED BLOOD COUNT 4.88 10*6/uL (4.50-5.90); RED CELL DISTRI WIDTH 13.4 % (0-14.5)
[2019-03-11 07:07] LABS: PLATELET SUFFICIENCY NORMAL (NORMAL); TOTAL CELLS COUNTED 100 #CELLS
[2019-03-11 07:26] LABS: CHLORIDE 122 mmol/L (98-107); SODIUM 154 mmol/L (136-145)
[2019-03-11 07:47] LABS: BUN 37 mg/dl (7-24); CREATININE 1.25 mg/dL (0.70-1.30); PHOSPHOROUS 2.4 mg/dL (2.5-4.9)
[2019-03-11 08:00] VITALS: BP 105/60
--- NOTE | 2019-03-11 11:05 | NUR ---
PHYSICAL THERAPY Pt sleeping and snoring peacefully, could not be woken up. Per nursing; Pt was in pain s/p PEG tube and is still confused. Will attempt at a later time. Thank you Jyotsna Brown, PT, DPT
[2019-03-11 12:00] VITALS: BP 104/70
--- NOTE | 2019-03-11 12:25 | NUR ---
YANIRA has not received a call from patients daughter as of yet. YANIRA reached out to the patients and left a message for a return call. -YANIRA Marin
--- NOTE | 2019-03-11 14:36 | NUR ---
OFFICE ASST received notice from Trigonometry Teacher Dayana the patients daughter return call. Per that conversation. OFFICE ASST faxed new referral to [facility]. Will need PT Eval to complete referral. -YANIRA Marin
[2019-03-11 16:00] VITALS: BP 115/55
[2019-03-11 20:00] VITALS: BP 120/87
[2019-03-12 06:22] LABS: BASO % 0.2 % (0.0-1.0); EOS # 0.2 10*3/uL (0.0-0.4); EOS % 1.7 % (1.0-4.0); HEMATOCRIT 43.9 % (42.0-52.0); HEMOGLOBIN 13.6 g/dl (14.0-18.0); LYMPH % 8.3 % (27.0-41.0); MEAN CELL VOLUME 100.2 fl (80.0-94.0); MEAN CORPUSCULAR HGB 31.1 pg (27.0-31.0); MEAN PLATELET VOLUME 12.1 fl (9.6-12.3); MONO # 0.7 10*3/uL (0.1-1.0); MONO % 5.9 % (3.0-9.0); NEUT # 10.2 10*3/uL (2.3-7.9); NEUT % 83.4 % (47.0-73.0); PLATELET COUNT AUTOMATED 179 10*3/uL (130-400); RED BLOOD COUNT 4.38 10*6/uL (4.50-5.90); RED CELL DISTRI WIDTH 13.4 % (0-14.5); WHITE BLOOD COUNT 12.3 10*3/uL (4.8-10.8)
[2019-03-12 06:34] LABS: BUN 40 mg/dl (7-24); CHLORIDE 119 mmol/L (98-107); CREATININE 1.02 mg/dL (0.70-1.30); POTASSIUM 4.1 mmol/L (3.5-5.1); SODIUM 151 mmol/L (136-145)
[2019-03-12 08:00] VITALS: BP 113/68
--- NOTE | 2019-03-12 08:06 | NUR ---
PHYSICAL THERAPY Patient came from [facility] [id number]. Will need a new PT order to evaluate. thank you Jyotsna Brown, PT, DPT
--- NOTE | 2019-03-12 09:18 | NUR ---
Occupational Therapy evaluation completed on 5 with full eval to follow. Patient is high complexity 62202 via chart review, testing and evaluation. Recommend OT for ADL training,functional mobility w/ ww,bed mobility and sit balance training per pOC and SNF to enable return home w/ elderly . Thank you. Lolis Odom OTR/L
--- NOTE | 2019-03-12 09:30 | NUR ---
PHYSICAL THERAPY Physical therapy evaluation completed, 5E. Full details/evaluation to follow. High complexity determined after evaluation/chart review,86141. PT to work on strength, gait, transfers, safety, balance. Recommending SNF at discharge. Thank you yJotsna Brown, PT, DPT
--- NOTE | 2019-03-12 11:58 | NUR ---
Awaiting acceptance from [facility]. VEHICLE COST ENGINEER faxed updates and PT/OT Evals to [facility].- SARAH MarinW
--- NOTE | 2019-03-12 13:24 | NUR ---
PT HAS BEEN REFERRED TO [facility] AND [facility] ARE AWATING ACCEPTANCE. WILL CONTINUE TO FOLLOW.
--- NOTE | 2019-03-12 15:35 | NUR ---
Waiting on acceptance for [facility]. SENIOR ACCOUNTANT ANALYST completed Hens. -YANIRA Marin
[2019-03-12 16:00] VITALS: BP 120/70
[2019-03-13] VITALS: BP 135/74
--- NOTE | 2019-03-13 02:23 | NUR ---
24 HR chart check completed.
[2019-03-13 07:03] LABS: BASO % 0.2 % (0.0-1.0); EOS # 0.2 10*3/uL (0.0-0.4); HEMATOCRIT 43.1 % (42.0-52.0); HEMOGLOBIN 13.7 g/dl (14.0-18.0); LYMPH # 1.1 10*3/uL (1.3-4.4); LYMPH % 10.4 % (27.0-41.0); MEAN CELL VOLUME 97.7 fl (80.0-94.0); MEAN CORPUSCULAR HGB 31.1 pg (27.0-31.0); MEAN CORPUSCULAR HGB CONC 31.8 g/dl (33.0-37.0); MONO # 0.8 10*3/uL (0.1-1.0); NEUT # 8.7 10*3/uL (2.3-7.9); NEUT % 79.9 % (47.0-73.0); PLATELET COUNT AUTOMATED 194 10*3/uL (130-400); RED BLOOD COUNT 4.41 10*6/uL (4.50-5.90); RED CELL DISTRI WIDTH 13.2 % (0-14.5); WHITE BLOOD COUNT 10.9 10*3/uL (4.8-10.8)
[2019-03-13 07:29] LABS: ALBUMIN 2.4 gm/dl (3.1-4.5); ALKALINE PHOSPHATASE 99 U/L (45-117); BUN 35 mg/dl (7-24); CHLORIDE 118 mmol/L (98-107); PHOSPHOROUS 2.4 mg/dL (2.5-4.9); POTASSIUM 3.5 mmol/L (3.5-5.1); SGOT/AST 45 IU/L (3-35); SGPT/ALT 52 U/L (12-78); SODIUM 150 mmol/L (136-145); TOTAL PROTEIN 6.7 gm/dL (6.4-8.2)
[2019-03-13 08:00] VITALS: BP 118/77
--- NOTE | 2019-03-13 10:19 | NUR ---
AWARE IV OUT OK TO LEAVE OUT.
--- NOTE | 2019-03-13 12:00 | NUR ---
PHYSICAL THERAPY BALLROOM DANCER attempted to see patient this date. Patient supine in bed at time of arrival with brief and gown removed. BALLROOM DANCER assisted nurse with re-donning gown and brief this date. Patient combative and impulsive during rolling in order to elena brief. Patient non-cooperative/responsive with BALLROOM DANCER when asked to participate in therapy this date. Patient supine in bed with call light within reach. Sammie Montoya PTA
[2019-03-13 16:00] VITALS: BP 140/75
[2019-03-13 20:00] VITALS: BP 156/81
[2019-03-14] VITALS: BP 156/84
--- NOTE | 2019-03-14 02:28 | NUR ---
24HR CHART CHECK COMPLETED
[2019-03-14 06:55] LABS: BASO % 0.2 % (0.0-1.0); EOS # 0.2 10*3/uL (0.0-0.4); EOS % 1.8 % (1.0-4.0); HEMATOCRIT 42.6 % (42.0-52.0); HEMOGLOBIN 13.6 g/dl (14.0-18.0); LYMPH # 0.9 10*3/uL (1.3-4.4); MEAN CELL VOLUME 97.3 fl (80.0-94.0); MEAN CORPUSCULAR HGB 31.1 pg (27.0-31.0); MEAN CORPUSCULAR HGB CONC 31.9 g/dl (33.0-37.0); MONO # 0.7 10*3/uL (0.1-1.0); MONO % 8.3 % (3.0-9.0); NEUT # 6.9 10*3/uL (2.3-7.9); NEUT % 79.4 % (47.0-73.0); PLATELET COUNT AUTOMATED 205 10*3/uL (130-400); RED BLOOD COUNT 4.38 10*6/uL (4.50-5.90); RED CELL DISTRI WIDTH 13.2 % (0-14.5); WHITE BLOOD COUNT 8.8 10*3/uL (4.8-10.8)
[2019-03-14 07:14] LABS: ALBUMIN 2.2 gm/dl (3.1-4.5); ALKALINE PHOSPHATASE 95 U/L (45-117); BUN 29 mg/dl (7-24); CHLORIDE 118 mmol/L (98-107); CREATININE 0.88 mg/dL (0.70-1.30); PHOSPHOROUS 3.1 mg/dL (2.5-4.9); POTASSIUM 3.7 mmol/L (3.5-5.1); SGOT/AST 31 IU/L (3-35); SGPT/ALT 40 U/L (12-78); SODIUM 150 mmol/L (136-145); TOTAL PROTEIN 6.3 gm/dL (6.4-8.2)
[2019-03-14 08:00] VITALS: BP 130/86; BP 140/86
[2019-03-14 16:00] VITALS: BP 139/72
--- NOTE | 2019-03-14 19:18 | NUR ---
PATIENT RESTING IN BED WITH EYES CLOSED. ARROUSES EASILY. BED ALARM ON, BED IN LOWEST POSITION, CALL LIGHT IN REACH
[2019-03-14 20:00] VITALS: BP 150/51; BP 150/57
--- NOTE | 2019-03-14 22:38 | NUR ---
PATIENT DISCONNECTED CONTINUOUS TUBE FEED
[2019-03-15] VITALS: BP 121/85
--- NOTE | 2019-03-15 04:58 | NUR ---
UNABLE TO VERIFY PLACEMENT FOR MEDICATIONS WITH ANOTHER RN. PATIENT YELLING IN PAIN AND COMBATIVE. MORNING MEDICATIONS NOT GIVEN. TUBE FEEDING NOT INFUSING AT THIS TIME
[2019-03-15 06:18] LABS: BASO % 0.3 % (0.0-1.0); EOS # 0.2 10*3/uL (0.0-0.4); EOS % 1.9 % (1.0-4.0); HEMATOCRIT 43.2 % (42.0-52.0); HEMOGLOBIN 13.9 g/dl (14.0-18.0); MEAN CELL VOLUME 98.6 fl (80.0-94.0); MEAN CORPUSCULAR HGB 31.7 pg (27.0-31.0); MEAN CORPUSCULAR HGB CONC 32.2 g/dl (33.0-37.0); MEAN PLATELET VOLUME 11.9 fl (9.6-12.3); MONO % 9.5 % (3.0-9.0); NEUT # 7.8 10*3/uL (2.3-7.9); NEUT % 77.6 % (47.0-73.0); PLATELET COUNT AUTOMATED 212 10*3/uL (130-400); RED BLOOD COUNT 4.38 10*6/uL (4.50-5.90); RED CELL DISTRI WIDTH 13.4 % (0-14.5); WHITE BLOOD COUNT 10.1 10*3/uL (4.8-10.8)
[2019-03-15 06:30] LABS: BUN 30 mg/dl (7-24); CHLORIDE 115 mmol/L (98-107); CREATININE 0.88 mg/dL (0.70-1.30); PHOSPHOROUS 3.1 mg/dL (2.5-4.9); POTASSIUM 3.8 mmol/L (3.5-5.1); SODIUM 149 mmol/L (136-145)
--- NOTE | 2019-03-15 07:33 | NUR ---
NURSE EXECUTIVE left message for [facility] to the patients acceptance/denial. -YANIRA Marin
--- NOTE | 2019-03-15 07:55 | NUR ---
PHYSICAL THERAPY PT SUPINE IN BED WITH BED ALARM ON AND 4 BED RAILS UP UPON ARRIVAL. PT IDENITIFED BY NAME AND ON ANKLE BAND UPON ARRIVAL. PT PERFORMED BED MOBILITY SUPINE IT SITTING EOB WITH VC'S TO PERFORM TASK AND Miki X1. PT PERFOMRED STS FROM EOB WITH Miki X2 WITH VC'S FOR TASK AND SAFETY. PT PERFORMED SIDE STEPPING 4 STEPS WITH HAND HELD ASSIST X2 AND MODa X1 TO BEGIN WEIGHT SHIFT TOWARDS HEAD OF BED. PT PERFORMED STS TO EOB WITH Miki X1 WITH VC'S FOR TASK TECHNIQUE AND SAFETY. PT PERFORMED SIT TO SUPINE WITH MODa X2 WITH VC'S FOR TASK TECHNIQUE. PT SUPINE WITH BED WITH BED ALARM ON AND BED RAILS UP FOR SAFETY. PT HAS MIN CARRY OVER WITH VC'S. PT SEE 1:1 FOR 15MIN [facility]
[2019-03-15 08:00] VITALS: BP 143/95
--- NOTE | 2019-03-15 08:00 | NUR ---
IN TO ROOM TO ASSESS PEG TUBE. OBVIOUS DISCOMFORT WHILE TAKING OFF ABDOMINAL BINDER. PEG TUBE FLUSHES EASILY. NO RESIDUAL AT THIS TIME. PT SHAKING AND MOANING DURING ASSESSMENT OF PEG. PT IS COMBATIVE WITH CARE. BED IN LOWEST LOCKED POSITION AND CALL LIGHT WITHIN REACH. BED ALARM ON. WILL CONTINUE TO MONITOR.
--- NOTE | 2019-03-15 08:12 | NUR ---
YANIRA spoke with [facility]. She had some questions about the patient. YANIRA answered those questions. She is contacting her Admin and will let YANIRA know if able to accept. YANIRA faxed updates to [facility]. -YANIRA Marin
--- NOTE | 2019-03-15 08:27 | NUR ---
OT NOTE PATIENT SEEN 14 MINUTES THIS DATE. PATIENT IDENTIFIED BY NAME AND DATE OF . PATIENT IN BED UPON ARRIVAL REMOVING HIS GOWN. PATIENT COMPLETED SUPINE TO SIT EOB MAX A X 2. PATIENT COMPLETED UB DRESSING SITTING EOB MAX A WITH PATIENT REQUIRING SIMPLE ONE STEP COMMANDS WITH POOR CARRYOVER AND AND POOR SAFETY AWARENESS. PATIENT COMPLETED SIT TO STAND FROM BED MIN A X 2 WITH POOR STAND TOLERANCE AND RIGIDITY. COMPLETED SIT TO SUPINE BED MAX A X 2. PATIENT IN BED WITH BED ALARM IN TACT. CONTINUE TOWARDS PLAN OF CARE. VASHTI BURT
--- NOTE | 2019-03-15 08:30 | NUR ---
ASKED ERNST SLOAN TO ASSESS PEG TUBE WELL FOR COMFIRMATION. RN STATES PEG PLACEMENT IS FINE. FLUSHES EASILY. WILL CONTINUE TO MONITOR.
--- NOTE | 2019-03-15 08:50 | NUR ---
Patient has been accepted at [facility] and can go when medically stable. -YANIRA Marin
--- NOTE | 2019-03-15 08:53 | NUR ---
CONTRACT MAIL CARRIER reached out to patients , no answer, no message was left. CONTRACT MAIL CARRIER reached out to patients daughter. Male answered said he would pass along my number to the patients daughter for a return call. -YANIRA Marin
[2019-03-15] MEDS ORDERED: ARICEPT10 M1 PEG (11:12)
[2019-03-15] MEDS ORDERED: MIRALAX17 GM PO (11:12)
[2019-03-15] MEDS ORDERED: PAROXETINE40 MG PEG (11:12)
[2019-03-15] MEDS ORDERED: RANITIDINE HCL150 M1 PEG (11:12)
[2019-03-15] MEDS ORDERED: ZOLOFT50 MG PEG (11:12)
[2019-03-15] MEDS ORDERED: DEPAKOTE SPRIN125 MG PEG (11:12)
[2019-03-15] MEDS ORDERED: OMEPRAZOLE MAGN20 MG PEG (11:12)
[2019-03-15] MEDS ORDERED: CELEBREX100 MG PO (11:12)
[2019-03-15] MEDS ORDERED: TRAMADOL HCL50 MG PEG (11:12)
[2019-03-15] MEDS ORDERED: CALCI-CHEW500 MG PEG (11:12)
[2019-03-15] MEDS ORDERED: ASCORBIC ACID500 M2 PEG (11:12)
[2019-03-15] MEDS ORDERED: SENNA8.6 MG PEG (11:12)
[2019-03-15] MEDS ORDERED: NATURE'S BLEND F1 MG PEG (11:12)
[2019-03-15] MEDS ORDERED: LEADER ASPIRIN325 MG PEG (11:12)
[2019-03-15] MEDS ORDERED: CIPROFLOXACIN250 MG PEG (11:36)
[2019-03-15] MEDS ORDERED: METRONIDAZOLE500 M1 PEG (11:36)
[2019-03-15 12:00] VITALS: BP 131/78
--- NOTE | 2019-03-15 12:24 | NUR ---
OUTREACH ANALYST notified of patient discharge. OUTREACH ANALYST spoke with RN-Sharee. OUTREACH ANALYST spoke with Delvin at [facility] and scheduled a transport to [place] at 3pm. Patients and grandson are at bedside. OUTREACH ANALYST informed them of this. OUTREACH ANALYST will fax discharge orders to [facility], and a facesheet to [facility]. -YANIRA Marin
--- NOTE | 2019-03-15 15:00 | NUR ---
Nurse to nurse report called to NATHALIA Botello at [facility].
--- NOTE | 2019-03-15 15:19 | NUR ---
Discharge instructions reviewed with patient/family. Patient receptive and verbalizes understanding. Follow-up care arranged. Written instructions given to patient/family. Patient was wheeled from unit by EMT's. Patient was lethargic, responsive to stimuli, moving all extremities independently. CAMERON VENEGAS
--- NOTE | 2019-03-15 18:45 | NUR ---
PHYSICAL THERAPY CO-SIGN I approve of the Physical Therapy notes written above. JAIDEN ACHARYA, PT, DPT
--- NOTE | 2019-03-16 07:58 | NUR ---
OCCUPATIONAL THERAPY CO-SIGN I approve of the Occupational Therapy notes written above. YAMEL HERRERA OTR/Jose Martin
== END 2019-03-15 15:19 | disposition other institution (70) | DRG 682 ==
LOC: 5E 18:24
PROVIDERS: Emergency Medicine; Internal Medicine; Student in an Organized Health Care Education/Training Program; ADMIT Family Medicine
PROC: 0DH63UZ Insertion of Feeding Device into Stomach, Percutaneous Approach (ICD-10-PCS; principal; 2019-03-09)
DX: N17.0 Acute kidney failure with tubular necrosis (principal); E43 Unspecified severe protein-calorie malnutrition; E87.0 Hyperosmolality and hypernatremia; Z43.1 Encounter for attention to gastrostomy; F02.81 Dementia in other diseases classified elsewhere, unspecified severity, with behavioral disturbance; K57.92 Diverticulitis of intestine, part unspecified, without perforation or abscess without bleeding; Z68.1 Body mass index [BMI] 19.9 or less, adult; R13.10 Dysphagia, unspecified; R62.7 Adult failure to thrive; E87.8 Other disorders of electrolyte and fluid balance, not elsewhere classified; F41.9 Anxiety disorder, unspecified; F32.9 Major depressive disorder, single episode, unspecified; K21.9 Gastro-esophageal reflux disease without esophagitis; M19.90 Unspecified osteoarthritis, unspecified site; G20 Parkinson's disease; G30.9 Alzheimer's disease, unspecified; F20.9 Schizophrenia, unspecified; I25.10 Atherosclerotic heart disease of native coronary artery without angina pectoris; E78.5 Hyperlipidemia, unspecified; I10 Essential (primary) hypertension; D41.9 Neoplasm of uncertain behavior of unspecified urinary organ; Z86.73 Personal history of transient ischemic attack (TIA), and cerebral infarction without residual deficits; Z90.49 Acquired absence of other specified parts of digestive tract; Z95.1 Presence of aortocoronary bypass graft; Z79.82 Long term (current) use of aspirin; Z79.899 Other long term (current) drug therapy